=== PATIENT | female | born 1945 | race Caucasian/White ===

== ENCOUNTER 2021-11-15 05:47 | Day surgery (SDC) | payer MEDICARE, OTHER ==
[2021-11-11 16:21] LABS: CLARITY,URINE CLEAR (Clear); COLOR,URINE YELLOW (Yellow); GLUCOSE, URINE NEGATIVE (Neg); KETONES,URINE TRACE mg/dl (Neg); LEUKOCYTE ESTERASE ,URINE TRACE (Neg); NITRITES, URINE NEGATIVE (Neg); OCCULT BLOOD,URINE TRACE-INTACT (Neg); PROTEIN,URINE 30 mg/dl (Neg); UROBILINOGEN,URINE 0.2 E.U/dL (0.2-1.0)
[2021-11-11 16:22] LABS: BASOPHILS # (AUTO) 0.1 X10'3 (0-0.2); BASOPHILS % (AUTO) 0.7 % (0-1); EOSINOPHILS # (AUTO) 0.3 X10'3 (0-0.9); EOSINOPHILS % (AUTO) 3.8 % (0-6); LYMPHOCYTES # (AUTO) 1.8 X10'3 (1.1-4.8); MEAN CORPUSCULAR HEMOGLOBIN 32.6 PG (27.0-31.0); MEAN CORPUSCULAR HGB CONC 33.4 g/dL (33.0-36.5); MEAN CORPUSCULAR VOLUME 97.6 FL (78-98); MEAN PLATELET VOLUME 8.7 FL (7.4-10.4); MONOCYTES # (AUTO) 0.7 X10'3 (0-0.9); MONOCYTES % (AUTO) 7.7 % (2-12); NEUTROPHILS # (AUTO) 5.7 X10'3 (1.8-7.7); NEUTROPHILS % (AUTO) 66.8 % (42-75); PRE OP HEMATOCRIT 40.2 % (35.0-45.0); PRE OP HEMOGLOBIN 13.4 g/dL (12.0-16.0); PRE OP PLATELET COUNT 282 X10'3 (140-440); RED BLOOD COUNT 4.12 X10'6 (4.20-5.60); RED CELL DISTRIBUTION WIDTH 14.2 % (11.5-14.5)
[2021-11-11 16:30] LABS: UA COLLECTION TYPE CLN CATCH MIDSTREAM
[2021-11-11 16:35] LABS: BACTERIA,URINE FEW /HPF (Neg); RBC,URINE NONE SEEN /HPF (0-2); SQUAMOUS EPITHELIAL CELL,UR MODERATE /LPF (FEW); WBC,URINE 0-4 /HPF (0-4)
[2021-11-11 16:49] LABS: ALBUMIN 3.6 G/DL (3.4-5.0); ALBUMIN/GLOBULIN RATIO 0.9 (1.1-1.5); ALKALINE PHOSPHATASE 106 IU/L (46-116); BLOOD UREA NITROGEN 25 MG/DL (7-18); BUN/CREATININE RATIO 17.5 (6.6-38.0); CALCIUM 9.5 MG/DL (8.5-10.1); CHLORIDE 103 MMOL/L (99-107); CREATININE 1.43 MG/DL (0.40-0.90); PRE OP ALT 28 U/L (30-65); PRE OP ANION GAP 8 (8-16); PRE OP AST 21 U/L (10-37); PRE OP BILIRUB, TOTAL 0.4 MG/DL (0.0-1.0); PRE OP GLUCOSE 122 MG/DL (70-104); PRE OP SODIUM 141 MMOL/L (135-145); TOTAL CARBON DIOXIDE 29.6 MMOL/L (24-32); TOTAL PROTEIN 7.4 G/DL (6.4-8.2); eGFR 36 ML/MIN
[2021-11-15] VITALS (8 sets, daily range): BP systolic 104–142; BP diastolic 66–117
[~2021-11-15] VITALS: Ht 160 cm; Wt 95.3 kg
[~2021-11-15 05:47] MED LIST: ALLO300T8 PO; AMLO10TA13 PO; ASPI81TA52 PO; ATOR-2 PO; BACL10TA2 PO; BUPR150T22 PO; CARV-50 PO; CLOP75TA34 PO; DOCUMENT DATE & TIME OF BETA-BLOCKER PO ONE; GABA800T11 PO; HYDR-3972 PO; LEVO112T5 PO; MELO-100 PO; METF-436 PO; VALS1TAB81 PO; ceFAZolin inj. 2,000 MG in dextrose 5%-water 100 ML IV ONE; famotidine 20mg tablet PO ONE; ringers solution, lacted 1,000 ML IV SCH
[2021-11-15] MEDS ORDERED: hydrALAZINE 20mg/ml inj. IV PRN (07:15)
[2021-11-15] MEDS ORDERED: fentaNYL/PF 50MCG/1 ML 2ML syringe IV PRN ×2 (07:15)
[2021-11-15] MEDS ORDERED: labetalol 20mg/4ml (5mg/ml) syringe IV PRN (07:15)
[2021-11-15] MEDS ORDERED: morphine 2 MG/ML inj. syringe IV PRN (07:15)
[2021-11-15] MEDS ORDERED: ringers solution, lacted 1,000 ML IV SCH (07:15)
[2021-11-15] MEDS ORDERED: ondansetron/PF 4mg/2ml inj IV PRN (07:15)
[2021-11-15] MEDS ORDERED: morphine 4 MG/ML inj SYRINge IV PRN (07:15)
[2021-11-15] MEDS ORDERED: bacitracin 15gm ointment TP ONE (08:28)
[2021-11-15] MEDS ORDERED: BUPIVAcaine/PF 2.5mg/ml (0.25%) 10ml vial ONE (08:28)
[2021-11-15] MEDS ORDERED: fentaNYL/PF 50MCG/1 ML 2ML syringe ONE (08:29)
[2021-11-15] MEDS ORDERED: midazolam 1 mg/ML 2ml injection ONE (08:29)
[2021-11-15] MEDS ORDERED: dexamethasone sod phosphate 4mg/ml inj. ONE (08:30)
[2021-11-15] MEDS ORDERED: LIDOcaine 1%/PF 5ML 10 MG/ML VIAL ONE (08:30)
[2021-11-15] MEDS ORDERED: propofol inj 20 ML IV ONE (08:30)
[2021-11-15] MEDS ORDERED: ondansetron/PF 4mg/2ml inj ONE (08:30)
[2021-11-15] MEDS ORDERED: desflurane 240ml liquid inh. IH ONE (08:42)
[2021-11-15] MEDS ORDERED: ePHEDrine 50MG/ML INJ. ONE (09:07)
--- NOTE | 2021-11-15 09:37 | NUR ---
Received from OR via SD, accompanied by Anesthesiologist DR OMALLEY and report given by Anesthesiolgist. PT PRESENTS WITH PIV 20G LEFT HAND, LEFT ANKLE/FOOT DRESSING MARINA ZULETA. Addendum: 11/15/21 at 0950 by Anisa Hamlin RN, RN Amended: Links added.
--- NOTE | 2021-11-15 11:07 | NUR ---
PT HAS MET DC CRITERIA. IV DC'D WITH CANULA INTACT. DC INSTRUCTIONS REVIEWED WITH PT AND PT'S FRIEND WITH NO FURTHER QUESTIONS AT THIS TIME. PT L;EFT WITH FRONT WHEEL WALKER 2 PT BELONGING BAGS AND BOOT FOR LEFT FOOT. PT WAS WHEELED OUT OF HOSPITAL TO WHERE FRIEND WAS WAITING IN PRIVATE VEHICLE TO TAKE PT HOME. Addendum: 11/15/21 at 1130 by Anisa Hamlin RN, RN Amended: Links added.
== END 2021-11-15 11:07 | disposition home or self-care (01) ==
LOC: PAS 05:47
PROVIDERS: ATTEND Podiatrist Foot & Ankle Surgery
DX: T84.84XA Pain due to internal orthopedic prosthetic devices, implants and grafts, initial encounter (principal); M65.872 Other synovitis and tenosynovitis, left ankle and foot; M19.072 Primary osteoarthritis, left ankle and foot; F41.9 Anxiety disorder, unspecified; Z79.899 Other long term (current) drug therapy; Z79.84 Long term (current) use of oral hypoglycemic drugs; Z79.82 Long term (current) use of aspirin; Z88.5 Allergy status to narcotic agent; Z90.710 Acquired absence of both cervix and uterus; Z98.890 Other specified postprocedural states; Y83.8 Other surgical procedures as the cause of abnormal reaction of the patient, or of later complication, without mention of misadventure at the time of the procedure; Y92.89 Other specified places as the place of occurrence of the external cause
CPT/HCPCS: 29894; 29895; 29898; 36415; 73600; 76000; 80053; 81001; 82948; 85025; 87088; 93005; A6223; J0690; J1100; J2250; J2405; J2704; J3010; J3490; J7030; J7060; J7120; Z7506; Z7512; A4215; A4618; A6449; A7000